=== PATIENT | female | born 2000 | race Caucasian/White ===

== ENCOUNTER 2024-05-25 10:03 | Inpatient (IN) | payer OTHER ==
[~2024-05-25] VITALS: Ht 167.6 cm; Wt 61.0 kg
[~2024-05-25 10:03] MED LIST: NICOTINE 14 MG/24 HR TRANSDERMAL TD SCH
[2024-05-25 11:33] LABS: HEMOGLOBIN 13.4 g/dl (12.0-15.5); MEAN CORPUSCULAR HEMOGLOBIN 29.2 pg (27.0-33.0); MEAN CORPUSCULAR HGB CONC 34.4 g/dl (32.0-36.5); PLATELET COUNT, AUTOMATED 226 10^3/uL (150-450); RED BLOOD COUNT 4.59 10^6/uL (4.00-5.40); WHITE BLOOD COUNT 6.6 10^3/uL (4.0-10.0)
[2024-05-25 11:57] LABS: AMPHETAMINES LEVEL URINE NEGATIVE (NEGATIVE)
[2024-05-25 11:58] LABS: BARBITURATES URINE NEGATIVE (NEGATIVE); BENZODIAZEPINES URINE NEGATIVE (NEGATIVE); CANNABINOIDS URINE NEGATIVE (NEGATIVE); COCAINE METABOLITE URINE NEGATIVE (NEGATIVE); METHADONE URINE NEGATIVE (NEGATIVE); OPIATES URINE NEGATIVE (NEGATIVE); PHENCYCLIDINE URINE NEGATIVE (NEGATIVE)
[2024-05-25 11:59] LABS: ETHYL ALCOHOL (ETHANOL) < 0.003 % (0.000-0.010)
[2024-05-25 12:01] LABS: ALBUMIN 4.3 G/DL (3.2-5.2); ALKALINE PHOSPHATASE 48 U/L (46-116); ALT/SGPT 10 U/L (7.0-40); AST/SGOT 9 U/L (<34); BILIRUBIN,DIRECT 0.2 MG/DL (<0.4); BILIRUBIN,TOTAL 0.6 MG/DL (0.3-1.2); BLOOD UREA NITROGEN 12 MG/DL (9-23); CALCIUM LEVEL 8.9 MG/DL (8.5-10.1); CARBON DIOXIDE LEVEL 26 MMOL/L (20-31); CHLORIDE LEVEL 108 MMOL/L (98-107); CREATININE FOR GFR 0.63 MG/DL (0.55-1.30); GLOMERULAR FILTRATION RATE > 60.0 (>60); GLUCOSE, FASTING 80 MG/DL (60-100); POTASSIUM SERUM 3.9 MMOL/L (3.5-5.1); SODIUM LEVEL 138 MMOL/L (136-145)
[2024-05-25 12:04] LABS: THYROID STIMULATING HORMONE 1.149 uIU/ML (0.55-4.78)
[2024-05-25 12:05] LABS: SALICYLATE LEVEL < 3.0 MG/DL (<30)
[2024-05-25] MEDS ORDERED: diphenhydrAMINE 25MG CAP PO PRN (13:50)
[2024-05-25] MEDS ORDERED: MAALOX 30 ML SUSP *UDC PO PRN (13:50)
[2024-05-25] MEDS ORDERED: MOM 30ML SUSPENSION UDC PO PRN (13:50)
[2024-05-25] MEDS ORDERED: traZODone 50 MG TAB PO PRN (13:50)
[2024-05-25] MEDS ORDERED: HOME MED LIST COMPLETE! XX SCH (15:05)
[2024-05-25 15:21] VITALS: BP 142/74; TEMP 97.7; O2SAT 100
[2024-05-26 06:13] VITALS: BP 128/61; TEMP 98.4; O2SAT 100
[2024-05-26] MEDS: IBUPROFEN 400MG TAB PO PRN (16:01)
[2024-05-26 16:34] VITALS: BP 109/57; TEMP 97.3; O2SAT 100
[2024-05-26] MEDS: ACETAMINOPHEN TAB 650MG DOSE (2X325MG) PO PRN (20:35)
[2024-05-27 06:03] VITALS: BP 137/64; TEMP 98; O2SAT 99
[2024-05-27] MEDS: ESCITALOPRAM OXALATE 5MG TABLET (LEXAPRO) PO SCH (11:47)
[2024-05-27 15:53] VITALS: BP 120/72; TEMP 97.6; O2SAT 97
[2024-05-28 06:00] VITALS: BP 124/58; TEMP 98; O2SAT 98
[2024-05-28 18:37] VITALS: BP 124/61; TEMP 98.4
[2024-05-29 05:46] VITALS: BP 119/59; TEMP 97.4; O2SAT 96
[2024-05-29] MEDS ORDERED: LEXA1TAB PO (07:40)
== END 2024-05-29 10:38 | disposition home or self-care (01) | DRG 881 ==
LOC: M ED 10:03 → M ED INP 13:48 → M PSY 15:17
PROVIDERS: ADMIT Student in an Organized Health Care Education/Training Program; ATTEND Student in an Organized Health Care Education/Training Program
DX: F32.A Depression, unspecified (principal); R45.851 Suicidal ideations; Z56.6 Other physical and mental strain related to work

== ENCOUNTER 2024-06-21 08:28 | Emergency (ER) | payer OTHER ==
[~2024-06-21] VITALS: Ht 162.6 cm; Wt 61.9 kg
[~2024-06-21 08:28] MED LIST changes: +LEXA1TAB PO; -NICOTINE 14 MG/24 HR TRANSDERMAL TD SCH
[2024-06-21] MEDS ORDERED: MULTTAB20 PO (08:32)
[2024-06-21 09:24] LABS: HEMATOCRIT 36.9 % (36.0-47.0); HEMOGLOBIN 12.9 g/dl (12.0-15.5); MEAN CORPUSCULAR HEMOGLOBIN 29.7 pg (27.0-33.0); PLATELET COUNT, AUTOMATED 234 10^3/uL (150-450); RED BLOOD COUNT 4.34 10^6/uL (4.00-5.40); WHITE BLOOD COUNT 5.5 10^3/uL (4.0-10.0)
[2024-06-21 09:49] LABS: BLOOD UREA NITROGEN 13 MG/DL (9-23); CALCIUM LEVEL 9.2 MG/DL (8.5-10.1); CARBON DIOXIDE LEVEL 26 MMOL/L (20-31); CHLORIDE LEVEL 107 MMOL/L (98-107); CREATININE FOR GFR 0.57 MG/DL (0.55-1.30); GLOMERULAR FILTRATION RATE > 60.0 (>60); GLUCOSE, FASTING 86 MG/DL (60-100); POTASSIUM SERUM 3.9 MMOL/L (3.5-5.1); SODIUM LEVEL 139 MMOL/L (136-145)
[2024-06-21 10:16] LABS: HCG, SERUM QUANTITATIVE 125755.9 MIU/ML (<4.2)
[2024-06-21 11:36] VITALS: BP 108/64; TEMP 97.8; O2SAT 100
== END 2024-06-21 11:44 | disposition home or self-care (01) ==
LOC: M ED 08:28
DX: O26.851 Spotting complicating pregnancy, first trimester (principal); Z3A.01 Less than 8 weeks gestation of pregnancy